=== PATIENT | male | born 1975 | race Hispanic/Latino ===

== ENCOUNTER 2018-07-13 10:56 | Emergency (ER) | payer SELFPAY ==
[2018-07-13] MEDS ORDERED: CEFTRIAXONE SODIUM 1 GM ONE (11:23)
[2018-07-13] MEDS ORDERED: LIDOCAINE HCL-MPF 1% 2ML VIAL ONE (11:23)
== END 2018-07-13 11:51 | disposition home or self-care (01) ==
LOC: EDH 10:56
DX: S80.861A Insect bite (nonvenomous), right lower leg, initial encounter (principal); L03.115 Cellulitis of right lower limb; Z87.891 Personal history of nicotine dependence; W57.XXXA Bitten or stung by nonvenomous insect and other nonvenomous arthropods, initial encounter; Y93.89 Activity, other specified; Y92.89 Other specified places as the place of occurrence of the external cause; Y99.8 Other external cause status
CPT/HCPCS: 96372; 99283; J0696; J3490